=== PATIENT | male | born 1980 | race Caucasian/White ===

== ENCOUNTER 2018-06-28 16:33 | Emergency (ER) | payer MEDICAID, SELFPAY ==
[2018-06-28 17:10] VITALS: BP 128/68; PULSE 73; RESP 16; TEMP 36.6; O2SAT 98
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
[2018-06-28 19:25] VITALS: BP 122/78; PULSE 70; RESP 18; O2SAT 99
== END 2018-06-28 19:23 | disposition home or self-care (01) ==
PROVIDERS: Emergency Provider Physician Assistant; PCP General Practice
DX: S43.102A Unspecified dislocation of left acromioclavicular joint, initial encounter (principal); V18.0XXA Pedal cycle driver injured in noncollision transport accident in nontraffic accident, initial encounter; Y93.55 Activity, bike riding
CPT/HCPCS: 99284; 73000; 73030; L3650

== ENCOUNTER 2018-07-06 12:24 | Outpatient (CLI) | payer MEDICAID, SELFPAY ==
--- NOTE | 2018-07-06 11:30 | DI.RAD_ITS ---
SYMPTOMS/DIAGNOSIS: AC SEPARATION LEFT CLAVICLE: Single view. Comparison 06/28/18. There is again seen a left acromioclavicular joint separation. The coracoclavicular distance measures 2.2 cm on the current examination compared to 2.4 on the prior. No fracture is seen. The glenohumeral joint appears well maintained on this single view. The soft tissues are unremarkable.
== END 2018-07-06 12:44 ==
PROVIDERS: PCP General Practice; Visit Provider Student in an Organized Health Care Education/Training Program
DX: S43.102D Unspecified dislocation of left acromioclavicular joint, subsequent encounter (principal)
CPT/HCPCS: 73000

== ENCOUNTER 2018-11-25 19:08 | Emergency (ER) | payer MEDICAID, SELFPAY ==
[2018-11-25 19:47] VITALS: BP 107/92; PULSE 82; RESP 16; TEMP 36.9; O2SAT 100
--- NOTE | 2018-11-25 20:05 | ED.GENADUL_ITS ---
Discharge Plan Disposition Patient Disposition: HOME Condition: Stable Discharge Details Chief Complaint: Cellulitis Clinical Impression: Cellulitis of great toe of left foot Primary Care Provider: Leonid Vasquez ED Provider: Keith Orellana Home Meds and New Rx's Prescriptions: New sulfamethoxazole-trimethoprim [Bactrim DS] 800-160 mg tablet 1 tab PO BID 7 Days Qty: 14 RF: 0 Continued Ibuprofen 800 MG tablet 800 mg PO Q8H PRN (Reason: Pain) Qty: 15 RF: 0 Discharge Instructions Instructions: Cellulitis (ED) Additional Instructions: Continue warm soaks 4-5 times daily. May gently floss of the toe as we discussed Take antibiotic as prescribed. Elevate the toe above level of heart to reduce pain or swelling. Return for increased swelling or pointing of the wound. 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 He appears to have a mild developing cellulitis without evidence of fluctuance. Discussed with him continuing warm soaks, flossing of the toe, course of antibiotics. Also discussed return precautions. HPI General Mode of arrival: ambulatory . Date/Time Provider Initiated Documentation: 11/25/18 19:56 . Limitations to Documentation: no limitations . Information obtained by: patient . History of Present Illness 38 year old M presents to the emergency department with the chief complaint of Left great toe erythema, described as moderate, Quality is described as aching, and is localized to the left and lower extremity. Patient reports no radiation. Patient started experiencing this hour(s) and it has been constant. No exacerbating factors reported . Patient notes no other symptoms.; denies fever/chills. Patient did receive the following treatments prior to arrival, none Related Data Home Medications Medication Instructions Recorded Confirmed Ibuprofen 800 mg PO Q8H PRN #15 tab 02/28/17 11/25/18 sulfamethoxazole-trimethoprim 1 tab PO BID 7 Days #14 tab 11/25/18 [Bactrim DS] Previous Rx's Medication Instructions Recorded Ibuprofen 800 mg PO Q8H PRN #15 tab 02/28/17 sulfamethoxazole-trimethoprim 1 tab PO BID 7 Days #14 tab 11/25/18 [Bactrim DS] Allergies Allergy/AdvReac Type Severity Reaction Status Date / Time No Known Allergies Allergy Unverified 11/25/18 19:52 General Stated Complaint: Cellulitis HANANE: 4 Review of Systems Review of Systems 6 systems reviewed and otherwise - [facility] Social History Smoking and Tabacco status: Never Exam Narrative Exam Narrative: GEN: awake, alert, oriented 3. Pleasant, well groomed, interactive. HEAD: Normocephalic, atraumatic ENT: Mucous membranes moist, oropharynx unremarkable, External ear exam unremarkable EYES: PERRL, EOMI EXT: Full ROM, trace left pedal edema, no rash. Left great toe with mild proximal erythema on the lateral aspect. No fluctuance Neuro: Grossly normal neurologic exam, conversant, interactive. Psych: Speech fluent, thoughts congruent, affect normal Course Vital Signs Temperature 36.9 C 11/25/18 19:47 Pulse 82 11/25/18 19:47 Respiratory Rate 16 11/25/18 19:47 Blood Pressure 107/92 H 11/25/18 19:47 Pulse Oximetry 100 11/25/18 19:47 Temperature 36.9 C 11/25/18 19:47 Temperature Source Temporal Artery Scan 11/25/18 19:47 Pulse 82 11/25/18 19:47 Respiratory Rate 16 11/25/18 19:47 Respiratory Effort 11/25/18 19:47 Blood Pressure 107/92 H 11/25/18 19:47 Pulse Oximetry 100 11/25/18 19:47 Oxygen Delivery Method Room Air 11/25/18 19:47 Oxygen Flow Rate 0 11/25/18 19:47 Pain Level 3 11/25/18 19:47
[2018-11-25] MEDS: Sulfameth/Trimeth DS TAB 1 TAB PO (20:26)
== END 2018-11-25 20:28 | disposition home or self-care (01) ==
PROVIDERS: Emergency Provider Emergency Medicine; PCP General Practice
DX: L03.116 Cellulitis of left lower limb (principal)
CPT/HCPCS: 99283

== ENCOUNTER 2024-09-04 19:19 | Emergency (ER) | payer BC, SELFPAY ==
[2024-09-04] VITALS (13 sets, daily range): BP systolic 129; BP diastolic 78–80; PULSE 96–118; RESP 18–30; TEMP 37.1–38.1; O2SAT 90–97
[2024-09-04 19:50] LABS: Lactate 1.1 mmol/L (0.6-1.4)
[2024-09-04 19:51] LABS: Abs Immature Grans 0.02 10^3/uL (0.0-0.06); Absolute Basophil Count 0.03 10^3/uL (0.0-0.2); Absolute Lymphocyte Count 0.53 10^3/uL (1.2-3.4); Absolute Monocyte Count 0.65 10^3/uL (0.1-0.8); Absolute Neutrophil Count 3.87 10^3/uL (1.2-6.7); Basophils % 0.6 %; HCT 42.9 % (40.0-50.0); HGB 15.1 g/dL (13.5-17.5); Immature Grans % 0.4 %; Lymphocytes % 10.4 %; MCH 31.4 pg (27.0-33.0); MCHC 35.2 % (32.0-36.0); MCV 89 fL (80-95); MPV 9.2 fL (8.0-11.0); Monocytes % 12.7 %; Neutrophils % 75.9 %; Platelet Count 155 10^3/uL (130-400); RBC 4.81 10^6/uL (4.36-5.78); RDW 11.9 % (11.8-14.1); RDW-SD 38.6 fL
[2024-09-04] MEDS: Ibuprofen 600 MG TAB PO (20:03)
[2024-09-04] MEDS: Acetaminophen 500 MG TAB 1000 MG PO (20:03)
[2024-09-04 20:07] LABS: ALT 32 U/L (16-63); AST 20 U/L (15-37); Albumin 3.4 g/dL (3.4-5.0); Alkaline Phosphatase 77 U/L (46-116); Anion Gap 10.8 mmol/L (3-11); BUN 8 mg/dL (7-18); Bilirubin, Total 0.79 mg/dL (0.2-1.0); CO2 24.2 mmol/L (21.0-32.0); Calcium 8.8 mg/dL (8.5-10.1); Chloride 96 mmol/L (98-107); Estimated GFR 96.37 (mL/min/1.73m2); Glucose 158 mg/dL (74-106); Potassium 3.9 mmol/L (3.5-5.1); Sodium 131 mmol/L (136-145); Total Protein 8.2 g/dL (6.4-8.2)
--- NOTE | 2024-09-04 20:07 | DI.RAD_ITS ---
Exam(s) XR CHEST 2V PA LATERAL EXAM: XR CHEST 2V PA LATERAL CLINICAL HISTORY: shortness of breath. TECHNIQUE: 2D digital imaging was performed. COMPARISON: No exams were available for comparison FINDINGS: 2 views: Heart size is normal. The mediastinum is not widened. Right lung is clear. However, there is significant infiltrate in the mid left lung field involving t he anterior segment of the left upper lobe. No pleural effusions. No pneumothorax. IMPRESSION: Significant left upper lobe infiltrate. No pleural effusions. DATA REPOSITORY: RADIATION DOSE DELIVERED:
[2024-09-04 20:13] LABS: COVID-19 PCR Negative (Negative); Influenza A PCR Negative (Negative); Influenza B PCR Negative (Negative); RSV PCR Negative (Negative); Source Nasopharynx
--- OUTSIDE RECORDS SUMMARY | 2024-09-04 20:49 | XMS_ITS | Encounter Summary ---
Author Organization [facility] Address [facility] [place] [address] Care Team Providers Care Laundry Room Attendant Name Role Phone Leonid Vasquez MD Primary Care Provider [phone] Reason for Visit * Reason Comments Skin Check hyperpigmentation of arms and legs * Consultation (Routine) - Specialty Diagnoses / Procedures Referred By Contsteven t Referred To Contact Dermatology Diagnoses Rash rash Leonid Vasquez MD [address] [facility] [place] [address] [facility] [address] [place] [address] Referral ID Status Reason Start Date Expiration Date V isits Requested Visits Authorized [id number] Consult, Test & [facility] PCP Updated and/or Approved 02/06/2018 02/06/2019 6 6 Encounter Details Date Type Department Care Team (Late st Contact Info) Description 03/18/2018 8:30 AM EDT Office Visit Dermatology at [facility] [address] [place] [address] Marco Thornton MD [address] [facility] [place] [address] Jennifer Chester PA [facility] [address] [place] [address] Multiple benign nevi; Melasma Social History Tobacco Use Types Packs/Day Years Used Date Smoking Tobacco: Never Assessed Sex and Gender Information Value Date Recorded Sex Assigned at Not on file Gender Identity Not on file Sexual Orientation Not on file documented as of this encounter Progress Notes * Jennifer Chester PA - 03/18/2018 8:30 AM EDT DERMATOLOGY - NEW PATIENT NOTE Date of service: 03/18/2018 Nghia Willson : 1980, 37 y.o. CC: Chief Complaint Patient presents with ??? Skin Check hyperpigmentation of arms and legs HPI: Nghia Willson is a 37 y.o. male referred by Leonid Vasquez for dyspigmentation on his extremities. States his and mother in law make a homemade lotion with coconut oil that may contain otoe-missouria/citrus and he has used it periodically. This dyspigmentation resolves each winter. 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 Relevant Skin History: - Skin cancer (including type): none - None Relevant Social History: - Owns a [employer] company, working constantly in the sun - says he wears an SPF 50 long sleeve shirt in the cooler months Medications: No current outpatient prescriptions on file. No current facility-administered medications for this visit. Allergies: Not on File Review of Systems: - General: Feels well. - Skin: No other skin concerns. Examination: - Constitutional: Patient was alert, well-appearing and in no noticeable distress. - Skin: An examination of the waist up and lower legs was performed. Diagnosis/Skin findings/Assessment/Plan: 1. Melasma vs phytophotoreaction - Bilateral legs and arms: patchy hyperpigmentation involving the dorsal aspects of the forearms and circumferential lower legs. - Discussed condition. Reassured patient of benign nature, though counseled on sun protection and avoidance when possible. - Recommended patient discontinue using homemade lotions/oils that contain citrus for at least 3 months to see if the discoloration resolves. 2. Benign appearing nevi - Scattered, waist up: Multiple, 0.3-0.5cm, medium- brown, evenly-pigmentedmacules and papules. All with regular pigment pattern on dermoscopy. No pigmented lesions suspicious for melanoma. - Patient reassured of benign nature. - No lesions suspicious for melanoma identified on exam today. Will continue to monitor. - Discussed importance of sun protection, sun avoidance strategies, protective clothing, and sunscreen. I discussed warning signs for skin cancer, including the ABCDEs of melanoma. ?? - Observe skin for change in color, size or character. Call if such occur. LOS: [id number] RTC: PRN Note initiated by MEHNAZ RICHARD. I, Tamiko Mcgraw, have performed the documentation for this encounter in the presence of and acting as a scribe for Jennifer Chester PA-C (Bri). I performed the services which were documented by the scribe, and I agree with the accuracy of the documentation in this encounter. Jennifer Chester PA-C (Bri) Reviewed and signed by Jennifer Chester PA-C [facility] Patient seen in conjunction with staff transit bus operator: Marco Thornton MD Section of Dermatology [facility] * Marco Thornton MD - 03/18/2018 8:30 AM EDT Examination Focused examination of the face, upper and lower extremities significant for the following: ?? Well-demarcated hyperpigmented uniform brown 6->20cm patches with no scale on the sun-exposedareas of the dorsum forearms, legs Assessment and Plan Hyperpigmentation DDx: PIH v melasma v phyophotodermatitis. Using home-made moisturizer with otoe-missouria juice component ?? Stop using citrus-laden moisturizers/topicals ?? Sun Protection Patient seen in conjunction with Coretta Chester PA-C. Marco Thornton MD FAAD Section of Dermatology [facility] documented in this encounter Plan of Treatment Not on file documented as of this encounter Visit Diagnoses Diagnosis Multiple benign nevi Benign neoplasm of skin, site unspecified Melasma Other dyschromia documented in this encounter Care Teams Laundry Room Attendant Relationship Specialty Start Date End Date Leonid Vasquez MD PCP - General General Internal Medicine 02/03/18 documented as of this encounter
--- OUTSIDE RECORDS SUMMARY | 2024-09-04 20:49 | XMS_ITS | Clinical Summary ---
Author Organization [facility] [place] [address] Care Team Providers Care Doorshaker Name Role Phone Unknown Primary Care Provider Unavailabl e Medications No known medications Social History Tobacco Use Types Packs/Day Years Used Date Smoking Tobacco: Never Assessed Sex and Gender Information Value Date Recorded Sex Assigned at Not on file Gender Identity Not on file Sexual Orientation Not on file Plan of Treatment Health Maintenance Due Date Last Done Comments HIV screen 1999 Hepatitis C Screening 1999 Lipid Screening 1999 Hepatitis B vaccine (0-59 yrs) (1) 2000 Tetanus/Diphtheria/Pertussis Vaccines (1 - Tdap) 10/24 Covid-19 Vaccine ( - 2023-25 season) 2024 Influenza (Flu) vaccine (1 o f 1 - Influenza standard series) 06/13/2024 Care Teams Doorshaker Relationship Specialty Start Date End Date Unknown None PCP - General 10/13/19
--- NOTE | 2024-09-04 21:04 | ED.GENADUL_ITS ---
Discharge Plan Disposition Patient Disposition: Home Condition: Stable Discharge Details Clinical Impression: Pneumonia Primary Care Provider: None,None ED Provider: Yvette Garcia Home Meds and New Rx's Prescriptions: New doxycycline hyclate 100 mg tablet 100 mg PO BID Qty: 10 0RF Discharge Instructions Additional Instructions: Take ibuprofen 600 mg every 8 hours with food for fever Take Tylenol 650 every 6 hours for fever control Yogurt daily while on antibiotic, take your antibiotic until completed Recommendation for reassessment by your primary care physician on Friday At least eight 8 ounce glasses of water daily Please return should you develop worsening shortness of breath, pain, or should any new concerns arise HPI General Date/Time Provider Initiated Documentation: 09/04/24 19:21 . HPI Narrative: This 43-year-old male is otherwise healthy presents with fever for the past 5 days. He does not smoke cough feels generally unwell. He denies any significant shortness of breath. Patient denies any abdominal pain. He denies any nausea or vomiting. Denies any hemoptysis or stiff neck, headache. Denies any rashes or lesions or tick bites. Related Data Home Medications ?Medication ?Instructions ?Recorded ?Confirmed doxycycline hyclate 100 mg tablet 100 mg PO BID #10 tabs 09/04/24 Previous Rx's ?Medication ?Instructions ?Recorded doxycycline hyclate 100 mg tablet 100 mg PO BID #10 tabs 09/04/24 Allergies Allergy/AdvReac Type Severity Reaction Status Date / Time No Known Allergies Allergy Verified 09/04/24 19:25 General Stated Complaint: Fever HANANE: 3 Exam Narrative Exam Narrative: 43-year-old male alert and oriented, no acute distress, crackles at base of left lung, sinus tachycardia, no abdominal tenderness, alert and oriented, no meningismus Course Vital Signs Vital signs: Vital Signs Temperature 38.1 C H 09/04/24 19:22 Pulse 118 H 09/04/24 19:22 Respiratory Rate 18 09/04/24 19:22 Blood Pressure 129/78 09/04/24 19:22 Pulse Oximetry 97 09/04/24 19:22 Temperature 37.1 C 09/04/24 21:00 Temperature Source Temporal Artery Scan 09/04/24 21:00 Pulse 96 H 09/04/24 21:01 Pulse 99 H 09/04/24 21:00 Respiratory Rate 19 09/04/24 21:01 Respiratory Effort Normal, Non-Labored 09/04/24 19:40 Blood Pressure 129/80 09/04/24 21:01 Blood Pressure Mean 94 09/04/24 21:01 Blood Pressure Position Sitting 09/04/24 19:22 Pulse Oximetry 92 09/04/24 21:01 Oxygen Delivery Method Room Air 09/04/24 19:22 Oxygen Flow Rate 0 09/04/24 19:22 Lab/Test Results Lab/Test Results: Laboratory Tests Range/Units 09/04/24 09/04/24 09/04/24 19:30 19:35 19:54 WBC (4.4-10.8) 10^3/uL 5.10 RBC (4.36-5.78) 10^6/uL 4.81 Hgb (13.5-17.5) g/dL 15.1 Hct (40.0-50.0) % 42.9 MCV (80-95) fL 89 MCH (27.0-33.0) pg 31.4 MCHC (32.0-36.0) % 35.2 RDW (11.8-14.1) % 11.9 Plt Count (130-400) 10^3/uL 155 MPV (8.0-11.0) fL 9.2 Immature Gran % % 0.4 Neutrophils % % 75.9 Lymphocytes % % 10.4 Monocytes % % 12.7 Eosinophils % % 0.0 Basophils % % 0.6 Nucleated RBC % (0.0-0.3) % 0.0 Absolute Neutrophils (1.2-6.7) 10^3/uL 3.87 Absolute Lymphocytes (1.2-3.4) 10^3/uL 0.53 L Absolute Monocytes (0.1-0.8) 10^3/uL 0.65 Absolute Eosinophils (0.0-0.7) 10^3/uL 0.00 Absolute Basophils (0.0-0.2) 10^3/uL 0.03 VBG Lactate (0.6-1.4) mmol/L 1.1 Cancelled Sodium (136-145) mmol/L 131 L Potassium (3.5-5.1) mmol/L 3.9 Chloride (98-107) mmol/L 96 L Carbon Dioxide (21.0-32.0) mmol/L 24.2 Anion Gap (3-11) mmol/L 10.8 BUN (7-18) mg/dL 8 Creatinine (0.70-1.30) mg/dL 1.0 Est GFR (CKD-EPI 2020) (mL/min/1.73m2) 96.37 Glucose (74-106) mg/dL 158 H Calcium (8.5-10.1) mg/dL 8.8 Total Bilirubin (0.2-1.0) mg/dL 0.79 AST (15-37) U/L 20 ALT (16-63) U/L 32 Alkaline Phosphatase (46-116) U/L 77 Total Protein (6.4-8.2) g/dL 8.2 Albumin (3.4-5.0) g/dL 3.4 Procalcitonin ng/mL 0.10 COVID-19 Source Nasopharynx SARS-CoV-2 (PCR) (Negative) Negative Influenza Type A (PCR) (Negative) Negative Influenza Type B (PCR) (Negative) Negative RSV (PCR) (Negative) Negative Medical Decision Making 43-year-old male alert and oriented, no acute distress, sinus tachycardia and left sided infiltrate. No respiratory distress. At this time patient is able to tolerate p.o. and I think stable for discharge home, will prescribe doxycycline. Received first dose of doxycycline in the emergency department. Aside from mild hyponatremia at 131, the remainder of labs are within normal limits. RSV flu and COVID-negative. Recheck with primary care physician on Friday recommended. Discharged home in stable condition with stable vitals will take supportive care including ibuprofen and Tylenol at home. Quality:SDOH Health Related Social Needs: No Data to Display PFSH All Active Problems (Updated 09/04/24 @ 21:05 by MEHNAZ Sofia) Pneumonia (Acute) Acromioclavicular joint separation, type 3 (Acute) Social History Smoking/Tobacco Use Status: Never Smoking risk assessment performed?: Yes Drug use: Never Do you feel safe in your relationship?: Yes
[2024-09-04] MEDS: Doxycycline Hyclate 100 MG, 2 CAPS/BTL PO (21:16)
--- NOTE | 2024-09-04 21:24 | DI.VRAD_ITS ---
PROCEDURE INFORMATION: Exam: XR Chest Exam date and time: 09/04/2024 7:58 PM Age: 43 years old Clinical indication: Fever and shortness of breath; Patient HX: SOB, fever since 09/01/24 TECHNIQUE: Imaging protocol: Radiologic exam of the chest. Views: 2 views. COMPARISON: CR XR [facility] LT 07/06/2018 11:35 AM FINDINGS: Lungs: Left hilar airspace opacity, favors pneumonia. Pleural spaces: Unremarkable. No pleural effusion. No pneumothorax. Heart/Mediastinum: No cardiomegaly or pericardial effusion. Bones/joints: No acute osseous abnormality. Soft tissues: Soft tissues are unremarkable as visualized. IMPRESSION: Left hilar airspace opacity, favors pneumonia. Dictated and Authenticated by: Lidia Martinez MD. Ordering:LETICIA Crawford MD
== END 2024-09-04 21:15 | disposition home or self-care (01) ==
PROVIDERS: Emergency Provider Physician Assistant
DX: J18.9 Pneumonia, unspecified organism (principal); E87.1 Hypo-osmolality and hyponatremia
CPT/HCPCS: 80053; 84145; 87637; 99284; 71046; 83605; 85025